=== PATIENT | male | born 1985 | race Caucasian/White ===

== ENCOUNTER 2018-01-02 03:07 | Emergency (ER) | payer MEDICAID, OTHER ==
[~2018-01-02] VITALS: Ht 185.4 cm; Wt 89.0 kg
[2018-01-02 03:09] VITALS: BP 145/99
== END 2018-01-02 04:11 | disposition home or self-care (01) ==
LOC: ED 04:02
DX: J01.00 Acute maxillary sinusitis, unspecified (principal); M79.18 Myalgia, other site
CPT/HCPCS: 99283